=== PATIENT | male | born 1950 | race Caucasian/White ===

== ENCOUNTER 2022-02-20 16:19 | Emergency (ER) | payer MEDICAID ==
[~2022-02-20] VITALS: Ht 180.3 cm; Wt 86.4 kg
[2022-02-20 16:56] VITALS: BP 149/80
== END 2022-02-20 20:03 | disposition home or self-care (01) ==
LOC: ER 16:21
DX: H10.13 Acute atopic conjunctivitis, bilateral (principal); H57.13 Ocular pain, bilateral; Z56.0 Unemployment, unspecified
CPT/HCPCS: 99282